=== PATIENT | male | born 1975 | race Caucasian/White ===

== ENCOUNTER 2016-08-20 05:58 | Emergency (ER) | payer BC ==
--- NOTE | 2016-08-20 06:07 | ED ---
General Adult HPI - General Stated complaint: right eye injury Time Seen by Provider: 08/20/16 06:02 Source: RN notes reviewed, old records reviewed - History of Present Illness Initial comments: This is a 41-year-old male the ER for evaluation. Patient comes ER for evaluation of stick in right eye, patient did have a glancing blow to his right eye with a stick low bending over today. Patient has drainage from right eye clear. No other complaints, no change in vision not wearing contacts. - Related Data Home Medications Medication Instructions Recorded Confirmed Lisinopril [Zestril] 10 mg PO DAILY 08/20/16 08/20/16 Allergies Allergy/AdvReac Type Severity Reaction Status Date / Time Penicillins Allergy Rash/Hives Verified 08/20/16 06:15 Review of Systems ROS Statement: Those systems with pertinent positive or pertinent negative responses have been documented in the HPI. ROS Other: All systems not noted in ROS Statement are negative. General Exam - General Exam Comments Initial Comments: Right eye tetracaine and fluorescein exam does show 7:00 corneal abrasion General appearance: alert, in no apparent distress, anxious Head exam: Present: atraumatic, normocephalic, normal inspection Eye exam: Present: normal appearance, PERRL, EOMI. Absent: scleral icterus, conjunctival injection, periorbital swelling ENT exam: Present: normal exam, mucous membranes moist Neck exam: Present: normal inspection. Absent: tenderness, meningismus, lymphadenopathy Respiratory exam: Present: normal lung sounds bilaterally. Absent: respiratory distress, wheezes, rales, rhonchi, stridor Cardiovascular Exam: Present: regular rate, normal rhythm, normal heart sounds. Absent: systolic murmur, diastolic murmur, rubs, gallop, clicks GI/Abdominal exam: Present: soft, normal bowel sounds. Absent: distended, tenderness, guarding, rebound, rigid Extremities exam: Present: normal inspection, full ROM, normal capillary refill. Absent: tenderness, pedal edema, joint swelling, calf tenderness Back exam: Present: normal inspection Neurological exam: Present: alert, oriented X3, CN II-XII intact Psychiatric exam: Present: normal affect, normal mood Skin exam: Present: warm, dry, intact, normal color. Absent: rash Course Vital Signs 08/20/16 06:12 Temperature 98.0 F Pulse Rate 91 Respiratory 18 Rate Blood Pressure 144/96 O2 Sat by Pulse 98 Oximetry Medical Decision Making - Medical Decision Making 41 male ER status post right eye injury, positive corneal abrasion, will be treated appropriately follow-up with ophthalmology Disposition Clinical Impression: Right corneal abrasion Disposition: HOME SELF-CARE Condition: Good Instructions: Corneal Abrasion (ED) Referrals: Bernarda Patel NPC [Primary Care Provider] - 1-2 days
[2016-08-20 06:15] VITALS: RESP 18
[2016-08-20] MEDS ORDERED: TOBRAMYCIN 0.3% OPHTH DROPS 5 ML BTL RIGHT EYE STA (06:52)
[2016-08-20 07:25] VITALS: BP 140/82; PULSE 80; TEMP 98.1
== END 2016-08-20 07:25 | disposition home or self-care (01) ==
LOC: EC 05:58
DX: S05.01XA Injury of conjunctiva and corneal abrasion without foreign body, right eye, initial encounter (principal); Z79.899 Other long term (current) drug therapy; Z88.0 Allergy status to penicillin; W22.8XXA Striking against or struck by other objects, initial encounter
CPT/HCPCS: 99284

== ENCOUNTER → 2021-09-01 | Outpatient (CLI) | payer BC ==
[2021-09-01 11:59] LABS: HCT 46.1 % (39.0-53.0); MCH 28.8 pg (25.0-35.0); MCHC 32.5 g/dL (31.0-37.0); MCV 88.7 fL (80.0-100.0); Mean Platelet Volume 7.7; Platelet Count 256 k/uL (150-450); RBC 5.19 m/uL (4.30-5.90); RDW 12.9 % (11.5-15.5); WBC 9.8 k/uL (3.8-10.6)
[2021-09-01 12:12] LABS: African American GFR (CKD) >90 (>60 ml/min/1.73 sqM); Anion Gap 6 mmol/L; Blood Urea Nitrogen 11 mg/dL (9-20); Carbon Dioxide 25 mmol/L (22-30); Chloride 105 mmol/L (98-107); Non-African American GFR(CKD) >90 (>60 ml/min/1.73 sqM); Potassium 4.8 mmol/L (3.5-5.1); Sodium 136 mmol/L (137-145)
== END | disposition home or self-care (01) ==
LOC: LABPAT 11:19
PROVIDERS: ATTEND Internal Medicine Clinical Cardiac Electrophysiology
DX: Z01.812 Encounter for preprocedural laboratory examination (principal); Z20.822 Contact with and (suspected) exposure to COVID-19; I47.1 Supraventricular tachycardia
CPT/HCPCS: 80051; 82565; 84520; 85027; 36415; U0003; C9803

== ENCOUNTER 2021-10-11 10:54 | Day surgery (SDC) | payer BC ==
[2021-10-09 12:51] VITALS: BMI 35.4
[~2021-10-11 10:54] MED LIST: LACTATED RINGERS 1,000 ML IV SCH; SODIUM CHLORIDE 0.9% 1,000 ML IV SCH
[2021-10-11 11:35] LABS: Glucose,Whole Blood 142 mg/dL (75-99)
[2021-10-11] MEDS ORDERED: MIDAZOLAM 2 MG/2 ML VIAL ONE (14:57)
[2021-10-11] MEDS ORDERED: ISOPROTERENOL 250 MCG/1.25 ML SYR IV ONE (14:57)
[2021-10-11] MEDS ORDERED: SUCCINYLCHOLINE CHLORIDE 100 MG/5 ML SYR IV ONE (14:57)
[2021-10-11] MEDS ORDERED: GLYCOPYRROLATE 0.2 MG/ML 2 ML VIAL ONE (14:57)
[2021-10-11] MEDS ORDERED: HYDROmorphone (PF) 1 MG/ML ONE (14:57)
[2021-10-11] MEDS ORDERED: PROPOFOL 10 MG/ML 20 ML VIAL IV ONE (14:57)
[2021-10-11] MEDS ORDERED: NEOSTIGMINE 1 MG/ML 10 ML VIAL ONE (14:57)
[2021-10-11] MEDS ORDERED: HEPARIN SODIUM,PORCINE 10,000 UNIT/ML 1 ML VIAL ONE (14:57)
[2021-10-11] MEDS ORDERED: ROCURONIUM 10 MG/ML (5 ML VIAL) IV ONE (14:57)
[2021-10-11] MEDS ORDERED: fentaNYL (PF) 50 MCG/ML 2 ML AMP ONE (14:57)
[2021-10-11] MEDS ORDERED: LIDOCAINE 1% INJ 10MG/ML (20 ML MDV) ONE ×2 (15:26→15:45)
[2021-10-11] MEDS ORDERED: LIDOCAINE 1% INJ 10MG/ML (20 ML MDV) SQ ONE (15:38)
[2021-10-11] MEDS ORDERED: HEPARIN SODIUM (1,000 UNIT/ML) 1,000 UNIT in SODIUM CHLORIDE 0.9% 1,000 ML IRRIGATION ONE (18:00)
[2021-10-11] MEDS ORDERED: HEPARIN SOD,PORK IN 0.45% NACL 25,000 UNIT in 0.45% NACL 1 250ML.BAG IV ONE (18:01)
[2021-10-11] MEDS ORDERED: ACETAMINOPHEN IV (For NPO) 1,000 MG in EMPTY BAG 1 BAG IVPB ONE (18:24)
[2021-10-11] MEDS ORDERED: ACETAMINOPHEN TAB 325 MG TAB PO PRN (18:24)
--- NOTE | 2021-10-11 18:29 | P.PRLE ---
RE: Cipriano Masterson Dear Bernardajemal Cota underwent a diagnostic EP study today for symptomatic SVT. He had a left posterior lateral accessory pathway that was conducting retrogradely only (ventricle to atrium only) He had orthodromic SVT with the circuit proceeding down the AV node, through the ventricles, up the accessory pathway on the left side, through the atrium and back down the AV node The path was mapped, successfully ablated and the SVT was rendered noninducible No other arrhythmias were induced While he will continue all his current medications, I would advise aspirin 325 mg by mouth daily for 30 days only He may stop it thereafter Thank you for entrusting me with the care of the patient Warm regards Sincerely Berny Lora
--- NOTE | 2021-10-11 18:34 | P.HPCAR ---
History of Present Illness This is Dr. Lora dictating an H/P on this patient The patient was interviewed and examined IMPRESSION / ASSESSMENT: Narrow complex supraventricular tachycardia, adenosine responsive Recurrent palpitations Type 2 diabetes Hypertension Obstructive sleep apnea PLAN: Diagnoses EP study and radiofrequency ablation based upon the results of EP study Follow-up 2-D echo and Doppler study to reassess LV function Statin therapy HPI This is a 40 male patient who has had a history of narrow complex appropriate antitachycardia that was treated in the emergency room with IV adenosine He continues to have recurrent palpitations His stress test was normal 2-D echo, last year revealed left ventricular ejection fraction 45% He has a history of hypertension which is controlled on lisinopril 2.5 g by mouth daily He is a type II diabetic and is on metformin ROS: No fever chills or rigors, no cough, phlegm or expectoration, no nausea, vomiting or diarrhea, no hematuria, dysuria, no musculoskeletal complaints, no strokes or seizures, no skin lesions. EXAMINATION: Afebrile 97.8F pulse rate 99 beats a minute, blood pressure 149/90 mmHg pulse ox 97% No JVD line no orthopnea Normal heart sounds normal S1 normal S2 no murmur gallop or rub line. Lungs no rhonchi no crackles line soft abdomen nontender No lower extremity edema REVIEW OF LABS, ECG & MEDICAL DATA Blood glucose 142 Patient is on lisinopril and metformin Physical Exam Vitals: Vital Signs Temp Pulse Resp BP Pulse Ox 10/11/21 11:49 97.8 F 99 16 149/90 97 Intake and Output 10/11/21 10/11/21 10/11/21 06:59 14:59 22:59 Intake Total 983 Balance 983 Intake: IV 983 Other: Weight 130 kg Past Medical History Past Medical History: Diabetes Mellitus, GERD/Reflux, Hypertension, Prostate Disorder Additional Past Medical History / Comment(s): PVC's diagnosed at 21 yrs old. "Slightly elevated cholesterol." "Slightly enlarged prostate". History of Any Multi-Drug Resistant Organisms: None Reported Past Surgical History: Appendectomy Past Anesthesia/Blood Transfusion Reactions: No Reported Reaction Smoking Status: Never smoker - Past Family History Mother Family Medical History: No Reported History Physical Examination Vital Signs Temp Pulse Resp BP Pulse Ox 10/11/21 11:49 97.8 F 99 16 149/90 97 Intake and Output 10/11/21 10/11/21 10/11/21 06:59 14:59 22:59 Intake Total 983 Balance 983 Intake: IV 983 Other: Weight 130 kg Results Current Medications Generic Name Dose Route Start Last Admin Trade Name Freq PRN Reason Stop Dose Admin Acetaminophen 650 mg 10/11/21 18:24 Acetaminophen Tab 325 Mg Tab PO Q6HR PRN Mild Pain Sodium Chloride 1,000 mls @ 50 mls/hr 10/11/21 06:02 10/11/21 11:30 Saline 0.9% IV 11/10/21 06:03 800 mls .Q20H LIBBY Administration Lactated Ringer's 1,000 mls @ 20 mls/hr 10/11/21 06:02 Lactated Ringers IV 11/10/21 06:03 .Q24H LIBBY Acetaminophen 1,000 mg/ IV 100 mls @ 400 mls/hr 10/11/21 18:24 Solution IVPB 10/11/21 18:38 ONCE ONE Sodium Chloride 12 ml 10/11/21 21:00 Sodium Chloride 0.9% Flush 10 Ml Syringe IV Q12HR LIBBY Intake and Output 10/11/21 10/11/21 10/11/21 06:59 14:59 22:59 Intake Total 983 Balance 983 Intake: IV 983 Other: Weight 130 kg Patient Weight 10/12/21 06:59 Weight 130 kg
[2021-10-11] MEDS ORDERED: IV FLUID CONTINUATION 1,000 ML IV ONE ×2 (18:39)
--- NOTE | 2021-10-11 18:44 | P.EPPROC ---
- EP Procedure Note Electrophysiology Procedure Note: Procedure Diagnostic EP study ended frequency ablation for narrow complex SVT, adenosine sensitive Final diagnosis Orthodromic reentry utilizing posterior lateral retrogradely conducting accessory pathway Postero-lateral retrogradely conducting only - accessory pathway Successful mapping and ablation of the pathway SVT (ORT) rendered noninducible No other arrhythmias induced Details Patient was brought to the EP lab in a fasting state. Written informed consent was obtained prior to the procedure. For venous sheaths were placed, 2 each per groin Diagnostic catheters were placed in the high right atrium and His bundle area Dominick sinus and RV A complete diagnostic EP study is performed on and off Isuprel Baseline measurements are normal. No delta waves noted AH 65 HV 52 ms Normal sinus node function Normal AV node function Eccentric conduction noted consistent with a left lateral/posterior lateral accessory pathway, conducting only retrogradely SVT (ORT) was induced on Isuprel with burst stimulation as well as induced spontaneously Nonsustained SVT (ORT) induced with extra stimulation from the coronary sinus Intracardiac echocardiography was performed Left] transseptal catheterization performed RA pressure 13/7/11 Normal LA pressure Long sheath placed in the left atrium, irrigated tip catheter placed in the left atrium The posterior lateral and lateral mitral annulus was mapped The atrial end of the pathway was mapped RF energy applied during tachycardia Termination occurred in 245 sahil-seconds after turning on RF energy RF applications applied around the successful site Following that a full EP study was once again performed on and off Isuprel There was no evidence for any other arrhythmias The ORT could not be reinduced There was no evidence for the posterior lateral accessory pathway Sheaths were removed with closure devices. Complete hemostasis achieved No acute complications
[2021-10-11] MEDS ORDERED: ACETAMINOPHEN IV (For NPO) 1,000 MG/100 ML VIAL IVPB ONE (19:05)
[2021-10-11] MEDS ORDERED: HYDROmorphone 0.5 MG/0.5 ML SYRINGE IVP ONE (19:15)
[2021-10-11 19:16] LABS: Glucose,Whole Blood 149 mg/dL (75-99)
[2021-10-11] MEDS: ASPIRIN 325 MG TAB PO SCH (21:44)
[2021-10-12] MEDS ORDERED: metFORMIN 500 MG TAB PO SCH (07:30)
[2021-10-12 08:40] VITALS: BP 124/80; PULSE 95; RESP 16; TEMP 98.1
[2021-10-12] MEDS ORDERED: FAMOTIDINE 20 MG TAB PO SCH (09:00)
[2021-10-12] MEDS: ASPIRIN 325 MG TAB PO SCH (09:12)
[2021-10-14] MEDS ORDERED: TRULICITY SQ SCH (09:00)
--- NOTE | 2021-10-15 21:03 | P.DS ---
Providers Attending physician: Berny Lora Primary care physician: [facility] Course: Patient is doing well. No chest discomfort dizziness lightheadedness No palpitations EKG is normal Heart sounds are normal Breath sounds are clear Normal S1 normal S2 Groins of healed well Impression Left posterior lateral accessory pathway Retrogradely-only conducting Inducible ORT Status post mapping and successful ablation ORT rendered noninducible, no further evidence for posterior lateral accessory pathway No other arrhythmias induced Plan Management of hypertension Management of cardiovascular risks secondary to diabetes Initiation of statins 325 mg of aspirin for 30 days only, post left atrial ablation Patient Condition at Discharge: Fair Plan - Discharge Summary Discharge Rx Participant: Yes New Discharge Prescriptions: No Action Lisinopril [Zestril] 2.5 mg PO DAILY Metformin (Unknown Dose) 500 mg PO BID Pepcid (Unknown Dose) 20 mg PO DAILY Trulicity (Unknown Dose) 1 dose SQ LIVE Discharge Medication List Lisinopril [Zestril] 2.5 mg PO DAILY 08/20/16 [History] Metformin (Unknown Dose) 500 mg PO BID 08/31/21 [History] Pepcid (Unknown Dose) 20 mg PO DAILY 08/31/21 [History] Trulicity (Unknown Dose) 1 dose SQ LIVE 08/31/21 [History] Follow up Appointment(s)/Referral(s): Berny Lora MD [STAFF PHYSICIAN] - 2 Weeks (Follow for a groin check within 1-2 weeks 325 mg of aspirin for 30 days, new prescription) Patient Instructions/Handouts: Chest Pain (DC), Heart Healthy Diet (DC), Cardiac Ablation (DC) Activity/Diet/Wound Care/Special Instructions: Post EP study - Ablation instructions 1. Keep access sites dry for 2 days. 2. No heavy lifting or straining for 2 days. 3. Avoid bending the hips repeatedly for 2 days. 4. You may go up and down stairs slowly Call if the following is noted 1. Bleeding, increasing swelling or pain at the access sites. 2. Increasing chest discomfort, especially upon taking a deep breath. 3. Increasing shortness of breath, at rest or with exertion. 4. Undue cough / phlegm 5. Difficulty or pain while swallowing. 6. Pain or change in color in the extremities. 7. Fever, chills, rigors. 8. Increasing headache or neurologic symptoms. 9. Dizziness, fainting, palpitations Continue current medications Medication, aspirin 325 mg by mouth daily for 30 days Discharge Disposition: HOME SELF-CARE
== END 2021-10-12 10:41 | disposition home or self-care (01) ==
LOC: CATHEP 10:54 → 6NMEDSUR 18:04 → CATHEP 10-12 10:41
PROVIDERS: ATTEND Internal Medicine Clinical Cardiac Electrophysiology
DX: I47.1 Supraventricular tachycardia (principal); I10 Essential (primary) hypertension; E11.9 Type 2 diabetes mellitus without complications; G47.33 Obstructive sleep apnea (adult) (pediatric); N42.9 Disorder of prostate, unspecified; Z86.16 Personal history of COVID-19; Z79.84 Long term (current) use of oral hypoglycemic drugs; Z79.899 Other long term (current) drug therapy; Z88.0 Allergy status to penicillin; Z90.49 Acquired absence of other specified parts of digestive tract
CPT/HCPCS: 93462; 93623; 93662; 93653; C1769 ×3; C1894; C1760 ×2; C1730 ×3; C1759; C1893; C1732; J2250; J1644 ×3; J2710; J2001; J3010; J1170 ×2; J0131; J0330; J2704